=== PATIENT | female | born 1945 | race Caucasian/White ===

== ENCOUNTER 2024-12-06 11:40 | Emergency (ER) | payer MEDICARE, SELFPAY ==
[2024-12-06] VITALS (9 sets, daily range): BP systolic 155–203; BP diastolic 81–98
[2024-12-06 12:19] LABS: ALT (SGPT) 22 U/L (0-35); AST (SGOT) 30 U/L (14-36); Albumin 4.9 g/dl (3.5-5.0); Alkaline Phosphatase 56 U/L (38-126); Blood Urea Nitrogen 14 mg/dl (7-17); Calcium 10.3 mg/dl (8.4-10.2); Carbon Dioxide 24 mmol/L (22-30); Chloride 106 mmol/L (98-107); Glucose 104 mg/dl (70-99); Hematocrit 39.6 % (37.0-47.0); Hemoglobin 14.1 g/dL (12.0-16.0); Mean Corp Hgb Conc. 35.6 g/dL (33.0-37.0); Mean Corpuscular Volume 98.0 fL (81.0-99.0); Potassium 4.4 mmol/L (3.5-5.1); Red Cell Dist. Width 13.5 % (11.5-14.5); Sodium 137 mmol/L (135-145); Total Protein 7.8 g/dl (6.3-8.2); eGFR > 60.00
[2024-12-06 12:22] LABS: Nucleated Red Blood Cells % 0 %
[2024-12-06] MEDS: NORVASC 10 MG PO (13:52)
[2024-12-06] MEDS: ZESTRIL 20 MG PO (14:06)
[2024-12-06 14:55] LABS: HDL Cholesterol 91 mg/dl; LDL Cholesterol, Calculated 198 mg/dl; Very Low Density Lipoprotein 23 mg/dl (0-30)
--- NOTE | 2024-12-06 15:47 | ED.CVA ---
History of Present Illness
General
Chief Complaint: CVA/TIA Symptoms
Source: patient, spouse and family
Exam Limitations: none
Time Seen by Provider: 12/06/24 12:55
Nursing documentation reviewed up to this point in time: agreed with
Onset of Stroke Symptoms
Onset of symptoms known: No
Time pt last seen normal is known: Yes
Date last time pt seen normal: 12/05/24
Time last time pt seen normal: 22:00
History of Present Illness
History of Present Illness:
79-year-old female presenting to the emergency department today with concerns of expressive aphasia upon awakening this morning roughly 3 hours prior to arrival to the emergency department. She seemed confused with lasted for about an hour. Has
since fully resolved. No history of similar symptoms. Last time she was asymptomatic was the night prior roughly 12 hours prior to awakening.
Past History
Past History
ED Past Medical History: HTN, Hypercholesterolemia and Other (Seasonal allergies.)
Social History
Alcohol: Occasional
Drug: None
Living: with family
Employment: Retired
Review of Systems
Review of Systems
Allergies reviewed?: Yes
All Other Systems: ROS reviewed and negative except as documented in HPI and ROS
Phy Exam
Physical Exam
Physical Exam:
GENERAL: Alert , in no apparent distress
EYE: pupils equal and reactive
NECK: Supple, no significant adenopathy.
ENT: o/p clr, mmm.
CARDIAC: Regular rate and rhythm .
LUNGS: Clear breath sounds bilaterally, no acute respiratory distress, no wheezes/rales/rhonchi
ABDOMEN: Soft, without focal tenderness, no r/g, no cvat
NEUROLOGICAL: Alert and oriented, no focal neuro deficits 5-5 upper and lower extremity strength normal sensation with palpating bilaterally normal finger-nose and [id number] no pronator drift. Normal cranial nerve exam
SKIN: Warm and dry, skin intact.
MUSCULOSKELETAL: No edema, well perfused.
PSYCH: Normal and appropriate interaction.
Course
Orders/Labs/Results
Orders:
Orders
12/06/24 11:53
CT Head W/o Iv Contrast Urgent
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
Reason For Exam: Expressive aphasia that started this morning
12/06/24 11:56
Cardiovascular Evaluation Urgent
Comment: ADD ON
Complete Blood Count/With Diff Urgent
Comprehensive Metabolic Panel Urgent
12/06/24 12:57
EKG [Electrocardiogram (*1)] Urgent
Reason for Study: TIA/Stroke
EKG- Treatment ONCE
12/06/24 13:22
CT Head & Neck Angio W/wo IV Urgent
Comment:
Reason For Exam: TIa symptoms, expressive aphasia
12/06/24 13:36
Add On- LAB Urgent
Tests Added?: lipid profile
12/06/24 13:48
Amlodipine [Norvasc] 10 mg PO ONCE ONE
12/06/24 14:01
Lisinopril [Zestril] 20 mg PO NOW STA
12/06/24 16:13
Aspirin 325 mg PO NOW STA
Clopidogrel Bisulfate [Plavix] 300 mg PO NOW STA
Abnormal Lab Results
12/06/24
11:56
WBC 3.5 L 10^3/uL
(4.8-10.8)
RBC 4.04 L 10^6/uL
(4.20-5.40)
MCH 34.9 H pg
(27.0-31.0)
Monocytes % 12.2 H %
(1.7-9.3)
Glucose 104 H mg/dl
(70-99)
Calcium 10.3 H mg/dl
(8.4-10.2)
Total Bilirubin 1.4 H mg/dl
(0.2-1.3)
Total Cholesterol 312 H mg/dl
(50-199)
12/06/24 11:56
12/06/24 11:56
Vital Signs
Initial and Last Documented VS:
Initial Vital Signs
Temp Pulse Resp BP Pulse Ox
98.5 F 85 18 183/98 96
12/06/24 11:46 12/06/24 11:46 12/06/24 11:46 12/06/24 11:46 12/06/24 11:46
Last Documented Vital Signs
Temp Pulse Resp BP Pulse Ox
98.5 F 81 18 173/89 95
12/06/24 11:46 12/06/24 15:00 12/06/24 15:00 12/06/24 16:06 12/06/24 15:49
MDM/Problems Addressed
MDM/Problems Addressed:
79-year-old female department with expressive aphasia and confusion upon awakening this morning. No specific numbness weakness into the extremities no change in vision no headache no chest pain or shortness of concern for potential TIA case was
discussed with Dr. Karimi. Was asymptomatic upon arrival here and normal neurologic evaluation. Noncon head CT was negative and labs unremarkable. EKG did not show any arrhythmia or emergent findings. CT angiogram was recommended. this was
normal. Otherwise asymptomatic throughout ER stay. Blood pressure in the 170s over 80s but did miss blood pressure medication she was advised to keep a close eye on this. Otherwise case again discussed with Aries who recommended Plavix load
aspirin and to be discharged for close outpatient follow-up. She was additionally given a note for an MRI as well. Any recurrence of symptoms she was advised for immediate return.
Of note the blood pressure was elevated at time of discharge. She did miss a dose of pressure medications. She was advised to keep a close eye on her blood pressure and to log it daily and to follow-up closely as an outpatient for this.
*Pulse Oximetry
SaO2: 95
Oxygen Mode of Delivery: Room air
Patient hypoxic: no (98)
*Critical Care Note
Total Time (30-74mins, 75-104mins- exclusive of procedures): Not Applicable
ED Attending Note
-
Portions of this chart may have been created with voice recognition software.� Occasional wrong word or��sound alike� substitutions may have occurred due to the inherent limitations of voice recognition software.
Discharge Plan
Departure
Patient Disposition: Home (Routine Discharge)
Date of Disposition: 12/06/24
Time of Disposition: 16:32
Patient with high blood pressure during this ER visit?: Yes
Condition: Good
Covid-19: Not Applicable
Discharge Problem:
Expressive aphasia, Brain TIA
Instructions: Transient Ischemic Attack (DC)
Prescriptions:
New
clopidogrel [Plavix] 75 mg tablet
75 mg PO DAILY 14 Days Qty: 14 0RF
aspirin 325 mg capsule
325 mg PO DAILY 14 Days Qty: 14 0RF
Referrals:
Amor Chris MD [Active, Neurology] - Follow up in 10 days
Kolby Early DO [Family Provider, Family Practice]
Activity Restrictions/Additional Instructions:
You came to the emergency department today with concerns of symptoms potentially consistent with TIA. Here you had a reassuring assessment. With normal CT and CT angiogram. Please take the prescribed aspirin as well as Plavix daily. You will
need close follow-up with neurology. In addition we will need to get an MRI. Return for any recurrence at any point or any worsening, new or concerning symptoms.
Interventions
Interventions:
*Risk Screen - Suicide Last Done: 12/06/24 11:46
*General Assessment Last Done: 12/06/24 11:46
*Neglect/Abuse Screening Last Done: 12/06/24 11:46
*ED- Fall Risk Assessment Last Done: 12/06/24 13:01
*ED COVID-19 Vaccine History Last Done: 12/06/24 13:01
ED- Pulmonary Assessment Last Done: 12/06/24 13:02
ED- Neurological Assessment Last Done: 12/06/24 13:19
ED- Cardiac Assessment Last Done: 12/06/24 13:02
ED Swallowing Screen Last Done: 12/06/24 13:19
Discharge Date and Time
Print Language: SLOVAK
[2024-12-06] MEDS: PLAVIX 300 MG PO (16:58)
[2024-12-06] MEDS: ASPIRIN 325 MG PO (16:58)
== END 2024-12-06 17:04 | disposition home or self-care (01) ==
LOC: EMR 11:40
PROVIDERS: Emergency Medicine; EMERGENCY PHYSICIAN Emergency Medicine; FAMILY PHYSICIAN Family Medicine
DX: R47.01 Aphasia (principal); G45.9 Transient cerebral ischemic attack, unspecified; E78.00 Pure hypercholesterolemia, unspecified; I10 Essential (primary) hypertension
CPT/HCPCS: 99284; 70450; 70496; 70498; 80053; 80061; 85025; 93005; Q9967